=== PATIENT | male | born 1975 | race Caucasian/White ===

== ENCOUNTER 2024-11-04 12:24 | Outpatient (AMB) | payer OTHER, SELFPAY ==
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
[2024-11-04 12:30] VITALS: BP 110/70; PULSE 100; TEMP 36.3; O2SAT 98; BMI 29.0
== END 2024-11-04 13:25 | disposition home or self-care (01) ==
PROVIDERS: Visit Provider Internal Medicine
DX: F43.10 Post-traumatic stress disorder, unspecified (principal); E66.3 Overweight; M32.9 Systemic lupus erythematosus, unspecified; N28.9 Disorder of kidney and ureter, unspecified; Z72.0 Tobacco use; R10.11 Right upper quadrant pain; Z12.11 Encounter for screening for malignant neoplasm of colon; L72.0 Epidermal cyst

== ENCOUNTER → 2024-11-04 12:24 | Outpatient (BNVA) | payer OTHER, SELFPAY | PROVIDERS: Visit Provider Internal Medicine | DX: F43.10 Post-traumatic stress disorder, unspecified (principal); M32.9 Systemic lupus erythematosus, unspecified; E66.3 Overweight; N28.9 Disorder of kidney and ureter, unspecified; R10.11 Right upper quadrant pain; L72.0 Epidermal cyst; Z72.0 Tobacco use | CPT/HCPCS: 99202 ==

== ENCOUNTER 2024-11-28 09:03 | Outpatient (REF) | payer OTHER, SELFPAY ==
[2024-11-28 09:17] LABS: MANUAL DIFF FLAG NO
[2024-11-28 09:40] LABS: Basophils Absolute Auto 0.1 X10*3/uL (0.0-0.2); Basophils Percent Auto 1.2 % (0-2); Eosinophils Absolute Auto 0.5 X10*3/uL (0.0-0.4); Eosinophils Percent Auto 6.7 % (0-4); Hematocrit 50.6 % (42.0-52.0); Hemoglobin 16.5 g/dl (14.0-18.0); Imm Gran Abs Auto 0.03 X10*3/uL (0.00-0.03); Imm Gran Pct Auto 0.4 % (0.0-0.4); Lymphocytes Percent Auto 25.7 % (20-40); Mean Corpuscular HGB Conc 32.6 g/dl (31.0-36.0); Mean Corpuscular Volume 95.1 fL (80.0-98.0); Mean Platelet Volume 9.8 fL (9.4-12.4); Monocytes Absolute Auto 1.1 X10*3/uL (0.1-1.2); Monocytes Percent Auto 13.7 % (2-11); Neutrophils Absolute Auto 4.1 x10*3/uL (2.0-8.3); Neutrophils Percent Auto 52.3 % (45-73); Platelet Count 262 X10*3/uL (160-400); Red Blood Count 5.32 X10*6/uL (4.60-5.80); Red Cell Distribution Width 13.8 % (11.0-16.0); White Blood Count 7.8 X10*3/uL (4.8-10.8)
[2024-11-28 09:58] LABS: Appearance Urine Clear; Color Urine Yellow; Glucose Urine UA Negative (Negative); Leukocyte Esterase Urine Negative (Negative); Nitrite Urine Negative (Negative); UMIC TRIGGER UACC YES; Urine Blood Small (1+) (Negative); Urine Ketones Negative (Negative); Urine Protein Trace mg/dL (Neg-Trace)
[2024-11-28 10:19] LABS: Bacteria Urine None Seen (None Seen); Hyaline Casts Urine 0-2 /LPF (0-2); RBC Urine 0-2 /HPF (0-2); Squamous Epithelial Cell Urine 0-2 /HPF (0-2); WBC Urine 0-5 /HPF (0-5)
[2024-11-28 10:23] LABS: Erythrocyte Sedimentation Rate 13 MM/HR (0-15)
[2024-11-28 10:24] LABS: Alanine Aminotransferase 45 U/L (0-40); Albumin Level 4.2 g/dL (3.5-5.0); Alkaline Phosphatase 110 U/L (39-117); Anion Gap 11 (12-20); Aspartate Amino Transferase 27 U/L (5-37); Bilirubin Total 0.3 mg/dL (0.0-1.0); Blood Urea Nitrogen 13 mg/dL (9-16); Carbon Dioxide 30 mmol/L (22-29); Chloride 105 mmol/L (96-108); Cholesterol 209 mg/dL (<200); Estimated Glomerular Filt Rate 58; Glucose Random 100 mg/dL (60-115); HDL Cholesterol 36 mg/dL (>40); LDL Cholesterol Calculated 137 mg/dL (<100); Potassium 3.5 mmol/L (3.3-5.1); Sodium 142 mmol/L (135-145); Total Protein 7.8 g/dL (6.5-8.0); Triglycerides 184 mg/dL (<150)
[2024-11-28 10:42] LABS: Free T4 (Free Thyroxine) 0.96 ng/dL (0.71-1.85); Thyroid Stimulating Hormone 1.79 uIU/mL (0.32-4.0)
[2024-11-28 10:54] LABS: Folate 11.2 ng/mL (> or = 4.0); Prostate Specific Antigen Scr 1.19 ng/mL (<0.05-4.0); Vitamin B12 299 pg/mL (200-900)
== END 2024-11-28 09:04 | disposition home or self-care (01) ==
LOC: HO.LAB 09:03
PROVIDERS: PCP Internal Medicine; Visit Provider Internal Medicine
DX: M32.9 Systemic lupus erythematosus, unspecified (principal); E78.00 Pure hypercholesterolemia, unspecified; R30.0 Dysuria
CPT/HCPCS: 36415; 80053; 80061; 81001; 82607; 82746; 84153; 84439; 84443; 85025; 85652; 86140

== ENCOUNTER 2024-12-02 08:54 | Outpatient (REF) | payer OTHER, SELFPAY ==
--- NOTE | ~2024-12-02 | US_ITS ---
CLINICAL HISTORY: R79.89 - Other specified abnormal findings of blood chemistry US abdomen complete with duplex and color Doppler Comparison: None Findings: The visualized pancreas, aorta, and inferior vena cava are unremarkable. Liver normal size and diffusely echogenic Right lobe 15.3 cm length. Incidental simple hepatic cyst right lobe measuring 1.0 x 1.0 x 1.0 cm probable focal fatty sparing near the gallbladder fossa. Common duct 4.0 mm diameter. Physiologic distention of the gallbladder. No gallstones or sludge. No gallbladder wall thickening. No pericholecystic fluid. No sonographic Awad sign. Main portal vein antegrade. Right kidney normal size, 14.7 cm in length. Normal cortical width and echotexture. No solid or cystic renal masses. No nephrolithiasis or hydronephrosis. Left kidney not identified in the left renal fossa. Spleen not identified. No ascites. No lymphadenopathy. Impression: 1. Hepatic steatosis with focal fatty sparing. Incidental hepatic cyst. 2. Left kidney and spleen not identified clinical correlation This document has been electronically signed by: Cedrick Cisneros MD on 12/03/2024 07:53:40
--- OUTSIDE RECORDS SUMMARY | 2024-12-02 09:19 | XMS_ITS | Patient Health Record ---
Author Organization [facility] Address [address] [place] [id number] Support Name Relationship Address Phone yoana bowers Emergency Contact Unknown HARJINDER RAMIRES Guarantor Unknown Reason For Referral No Information Medications Medication SIG (Take, Route, Fr equency, Duration) Notes Start Date End Date Status SEROquel 100 MG 1 tablet Orally Once a day for 30 day(s) Unknown Remeron Unknown Cymbalta Unknown Cymbalta 30 MG 1 capsule Orally Onc e a day for 30 day(s) undefined 01/18/2019 Unknown Naproxen 500 MG 1 tablet with food o r milk as needed Orally every 12 hrs Unkno wn Glucosamine Unknown Social History Tobacco Use: Social History Observation Description Date Details (start date - stop date) Never Smoker NA - NA Tobacco Use/Smoking Question Answer Notes Are you a nonsmoker Alcohol Screen (Audit-C) Question Answer Notes Did you have a drink containing alcohol in the p ast year? No Points 0 Interpretation Negative Problems Problem Type SNOMED Code ICD Code Onset Dates Problem Status W/U Status Risk Notes Problem Major depression, single episode (88738499) Major depressive disorder, single episode, unspecified (F32.9) Active confirmed Problem Chest pain (70282404) Chest pain, unspecified (R07.9) Active confirmed Problem Osteoarthritis (780360295) Osteoarthritis (715.00) Active confirmed Problem Posttraumatic stress disorder (52986227) PTSD (post-traumatic stress disorder) (F43.10) Active confirmed Problem Lupus erythematosus (792658448) Lupus erythematosus, unspecified form (L93.0) Active confirmed Plan Of Treatment No Information Medications Administered Medication Instructions Date of Administration Dosage Notes Ketorolac Trometh 30 mg 07/26/2019 Medical (General) History Medical History History ICD Code Major depressive disorder, single episod e, unspecified F32.9 Chest pain, unspecified R07.9 Osteoarthritis 715.00 respiratory problems reumatoid arthritis
== END 2024-12-02 08:55 | disposition home or self-care (01) ==
LOC: HO.US 08:54
PROVIDERS: PCP Internal Medicine; Visit Provider Internal Medicine
DX: R79.89 Other specified abnormal findings of blood chemistry (principal); R10.11 Right upper quadrant pain
CPT/HCPCS: 76700

== ENCOUNTER → 2024-12-02 08:56 | Outpatient (BNV) | payer OTHER, SELFPAY | PROVIDERS: PCP Internal Medicine; Visit Provider Radiology Diagnostic Radiology | DX: K76.0 Fatty (change of) liver, not elsewhere classified (principal) | CPT/HCPCS: 76700 ==

== ENCOUNTER 2024-12-09 10:43 | Outpatient (AMB) | payer OTHER, SELFPAY ==
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
--- OUTSIDE RECORDS SUMMARY | 2024-12-09 11:47 | XMS_ITS | Patient Health Record ---
Author Organization [facility] Address [address] [place] [phone] Support Name Relationship Address Phone yoana bowers [...] Risk Notes Problem Major depression, single episode (25647753) Major depressive disorder, single episode, unspecified (F32.9) Active confirmed Problem Chest pain (55655088) Chest pain, unspecified (R07.9) Active confirmed Problem Osteoarthritis (662868660) Osteoarthritis (715.00) Active confirmed Problem Posttraumatic stress disorder (34121088) PTSD (post-traumatic stress disorder) (F43.10) Active confirmed Problem Lupus erythematosus (403009469) Lupus erythematosus, unspecified form (L93.0) Active confirmed Plan Of Treatment No Information Medications Administered Medication Instructions Date of Administration Dosage Notes Ketorolac Trometh 30 mg 07/26/2019 Medical (General) History Medical History History ICD Code Major depressive disorder, single episod e, unspecified F32.9 Chest pain, unspecified R07.9 Osteoarthritis 715.00 respiratory problems reumatoid arthritis
== END 2024-12-09 13:02 | disposition home or self-care (01) ==
PROVIDERS: PCP Internal Medicine; Visit Provider Physician Assistant Medical
DX: F17.210 Nicotine dependence, cigarettes, uncomplicated (principal)
CPT/HCPCS: G0296

== ENCOUNTER 2024-12-09 11:22 | Outpatient (REF) | payer OTHER, SELFPAY ==
--- NOTE | ~2024-12-09 | CT_ITS ---
CLINICAL HISTORY: F17.210 - Nicotine dependence, cigarettes, uncomplicated CT lung cancer screening (LDCT) Comparison: None Technique: Axial CT images of the chest using low-dose technique. Referring provider counseled the patient on shared decision-making for LDCT screening. Additional counseling was provided on smoking cessation. Effective radiation dose total: DLP 47.5 mGycm, CTDIvol 1.5 mGy. Findings: Lung: No solid or semi solid pulmonary lesion Coronary artery calcifications: none Limited upper abdomen: Unremarkable Other: None Impression: Category 1: Normal Category 1: Normal; continue annual screening Category 2: Benign appearance or behavior, continue annual screening Category 3: Probably benign, [address] recommended Category 4A: Suspicious, [address] recommended; may consider PET/CT Category 4B: Suspicious, Additional diagnostics and/or tissue sampling recommended Category 4X: Suspicious, Additional diagnostics and/or tissue sampling recommended Category 0: Recalls (incomplete screen due to Incomplete coverage, Noise, Respiratory motion, Expiration, Obscured by acute abnormality) This document has been electronically signed by: Robert Martel MD on 12/12/2024 08:46:50
== END 2024-12-09 11:23 | disposition home or self-care (01) ==
LOC: HO.CT 11:22
PROVIDERS: Visit Provider Physician Assistant Medical
DX: Z12.2 Encounter for screening for malignant neoplasm of respiratory organs (principal); F17.210 Nicotine dependence, cigarettes, uncomplicated
CPT/HCPCS: 71271; G0296

== ENCOUNTER → 2024-12-09 11:23 | Outpatient (BNV) | payer OTHER, SELFPAY | PROVIDERS: Visit Provider Specialist | DX: F17.210 Nicotine dependence, cigarettes, uncomplicated (principal) | CPT/HCPCS: 71271 ==

== ENCOUNTER 2025-02-03 12:22 | Outpatient (AMB) | payer OTHER, SELFPAY ==
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
[2025-02-03 12:35] VITALS: BP 124/72; PULSE 57; TEMP 36.5; O2SAT 97; BMI 28.7
--- OUTSIDE RECORDS SUMMARY | 2025-02-03 13:09 | XMS_ITS | Patient Health Record ---
Author Organization [facility] Address [address] [place] [id number] Support Name Relationship Address Phone yoana bowers [...] Risk Notes Problem Major depression, single episode ([id number]) Major depressive disorder, single episode, unspecified (F32.9) Active confirmed Problem Chest pain (87817796) Chest pain, unspecified (R07.9) Active confirmed Problem Osteoarthritis (379019020) Osteoarthritis (715.00) Active confirmed Problem Posttraumatic stress disorder (39929506) PTSD (post-traumatic stress disorder) (F43.10) Active confirmed Problem Lupus erythematosus (112368219) Lupus erythematosus, unspecified form (L93.0) Active confirmed Plan Of Treatment No Information Medications Administered Medication Instructions Date of Administration Dosage Notes Ketorolac Trometh 30 mg 07/26/2019 Medical (General) History Medical History History ICD Code Major depressive disorder, single episod e, unspecified F32.9 Chest pain, unspecified R07.9 Osteoarthritis 715.00 respiratory problems reumatoid arthritis
== END 2025-02-03 13:42 | disposition home or self-care (01) ==
LOC: HO.HMCH 12:23
PROVIDERS: Visit Provider Internal Medicine
DX: Z00.00 Encounter for general adult medical examination without abnormal findings (principal); F17.210 Nicotine dependence, cigarettes, uncomplicated; M32.9 Systemic lupus erythematosus, unspecified; E66.3 Overweight; E78.00 Pure hypercholesterolemia, unspecified; R73.02 Impaired glucose tolerance (oral); K76.0 Fatty (change of) liver, not elsewhere classified; F43.10 Post-traumatic stress disorder, unspecified; R35.0 Frequency of micturition; R31.9 Hematuria, unspecified; Z23 Encounter for immunization

== ENCOUNTER → 2025-02-03 12:22 | Outpatient (BNVA) | payer OTHER, SELFPAY | PROVIDERS: Visit Provider Internal Medicine | DX: Z00.00 Encounter for general adult medical examination without abnormal findings (principal); Z23 Encounter for immunization; M32.9 Systemic lupus erythematosus, unspecified; E66.3 Overweight; Z68.28 Body mass index [BMI] 28.0-28.9, adult; E78.00 Pure hypercholesterolemia, unspecified; R73.02 Impaired glucose tolerance (oral); K76.0 Fatty (change of) liver, not elsewhere classified; F43.10 Post-traumatic stress disorder, unspecified; R35.0 Frequency of micturition; R31.9 Hematuria, unspecified; F17.210 Nicotine dependence, cigarettes, uncomplicated; Z90.5 Acquired absence of kidney | CPT/HCPCS: 90471; 90677; 99396 ==

== ENCOUNTER 2025-02-09 15:16 | Outpatient (REF) | payer OTHER, SELFPAY ==
--- NOTE | ~2025-02-09 | US_ITS ---
CLINICAL HISTORY: R35.0 - Frequency of micturition US bladder with color Doppler Comparison: None Findings: Urinary bladder is unremarkable. Prevoid volume 260.0 mL. Postvoid volume 32.3 mL. Ureteral jets were demonstrated on the right only. Prostate measures 3.1 x 3.7 x 4.1 cm Impression: 1. Elevated postvoid residual volume. 2. Prostate volume 32.3 mL. 3. Right ureteral jet was documented technologist documented left kidney removed please confirm with patient's surgical history. This document has been electronically signed by: Cedrick Cisneros MD on 02/10/2025 12:30:13
--- OUTSIDE RECORDS SUMMARY | 2025-02-09 17:59 | XMS_ITS | Patient Health Record ---
Author Organization [facility] Address [address] [place] [phone] Support Name Relationship Address Phone yoana bowers Emergency Contact Unknown [phone] HARJINDER RAMIRES Guarantor Unknown [phone] Reason For Referral No Information Medications Medication [...] Risk Notes Problem Major depression, single episode (39079784) Major depressive disorder, single episode, unspecified (F32.9) Active confirmed Problem Chest pain (84880733) Chest pain, unspecified (R07.9) Active confirmed Problem Osteoarthritis (657418580) Osteoarthritis (715.00) Active confirmed Problem Posttraumatic stress disorder (90450748) PTSD (post-traumatic stress disorder) (F43.10) Active confirmed Problem Lupus erythematosus (772387335) Lupus erythematosus, unspecified form (L93.0) Active confirmed Plan Of Treatment No Information Medications Administered Medication Instructions Date of Administration Dosage Notes Ketorolac Trometh 30 mg 07/26/2019 Medical (General) History Medical History History ICD Code Major depressive disorder, single episod e, unspecified F32.9 Chest pain, unspecified R07.9 Osteoarthritis 715.00 respiratory problems reumatoid arthritis
== END 2025-02-09 15:17 | disposition home or self-care (01) ==
LOC: HO.US 15:16
PROVIDERS: PCP Internal Medicine; Visit Provider Internal Medicine
DX: R35.0 Frequency of micturition (principal)
CPT/HCPCS: 76857

== ENCOUNTER → 2025-02-09 15:20 | Outpatient (BNV) | payer OTHER, SELFPAY | PROVIDERS: PCP Internal Medicine; Visit Provider Radiology Diagnostic Radiology | DX: R35.0 Frequency of micturition (principal) | CPT/HCPCS: 76857 ==

== ENCOUNTER 2025-03-07 08:52 | Outpatient (REF) | payer OTHER, SELFPAY ==
--- OUTSIDE RECORDS SUMMARY | 2025-03-07 09:18 | XMS_ITS | Patient Health Record ---
Author Organization [facility] Address [address] [place] [id number] Support Name Relationship Address Phone yoana bowers Emergency Contact Unknown [phone] HARJINDER RAMIRES Guarantor Unknown Reason For Referral [...] Risk Notes Problem Major depression, single episode (17572614) Major depressive disorder, single episode, unspecified (F32.9) Active confirmed Problem Chest pain (49914467) Chest pain, unspecified (R07.9) Active confirmed Problem Osteoarthritis (254182329) Osteoarthritis (715.00) Active confirmed Problem Posttraumatic stress disorder (23836991) PTSD (post-traumatic stress disorder) (F43.10) Active confirmed Problem Lupus erythematosus (911892637) Lupus erythematosus, unspecified form (L93.0) Active confirmed Plan Of Treatment No Information Medications Administered Medication Instructions Date of Administration Dosage Notes Ketorolac Trometh 30 mg 07/26/2019 Medical (General) History Medical History History ICD Code Major depressive disorder, single episod e, unspecified F32.9 Chest pain, unspecified R07.9 Osteoarthritis 715.00 respiratory problems reumatoid arthritis
[2025-03-07 09:30] LABS: Urine Cytology See Pathology rpt
[2025-03-07 09:38] LABS: Estimated Average Glucose 111 mg/dL; Hemoglobin A1C 150.6498 umol/L; Hemoglobin A1c % 5.5 % (<6.0); Total Hemoglobin (HGBA1C) 4134.7681 umol/L
[2025-03-07 09:58] LABS: Alanine Aminotransferase 37 U/L (0-40); Alkaline Phosphatase 104 U/L (39-117); Aspartate Amino Transferase 26 U/L (5-37); Bilirubin Direct < 0.2 mg/dL (0.0-0.5); Bilirubin Total 0.2 mg/dL (0.0-1.0); Total Protein 7.1 g/dL (6.5-8.0)
[2025-03-07 10:14] LABS: Appearance Urine Clear; Color Urine Yellow; Glucose Urine UA Negative (Negative); Leukocyte Esterase Urine Negative (Negative); Nitrite Urine Negative (Negative); PH 5.5 (5.0-9.0); Specific Gravity - Urine 1.025 (1.005-1.025); UMIC TRIGGER UACC YES; Urine Blood Trace (Negative); Urine Ketones Trace mg/dL (Negative); Urine Protein Negative (Neg-Trace)
[2025-03-07 10:22] LABS: Bacteria Urine None Seen (None Seen); Hyaline Casts Urine 0-2 /LPF (0-2); RBC Urine 0-2 /HPF (0-2); Squamous Epithelial Cell Urine 0-2 /HPF (0-2); WBC Urine 0-5 /HPF (0-5)
[2025-03-07 10:25] LABS: HBS Num1 0.64 mIU/mL (0-7.99); HBc Num1 0.06 S/CO (0.00-0.79); HBsAGNum1 0.35 S/CO (0.00-0.99); Hepatitis B Core Antibody Nonreactive (Nonreactive); Hepatitis B Surface Antigen Negative (Negative); ~HepC Num1 0.08 S/CO (0.00-0.79); ~Hepatitis B Surface Antibody NONREACTIVE (Nonreactive); ~Hepatitis C Antibody Nonreactive (Nonreactive)
== END 2025-03-07 08:53 | disposition home or self-care (01) ==
LOC: HO.LAB 08:52
PROVIDERS: PCP Internal Medicine; Visit Provider Internal Medicine
DX: K76.0 Fatty (change of) liver, not elsewhere classified (principal); R35.0 Frequency of micturition; R79.89 Other specified abnormal findings of blood chemistry; R30.0 Dysuria; M32.9 Systemic lupus erythematosus, unspecified
CPT/HCPCS: 36415; 80076; 81001; 81003; 83036; 86704; 86706; 86803; 87340; 88112

== ENCOUNTER 2025-03-31 11:03 | Outpatient (AMB) | payer OTHER, SELFPAY ==
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
[2025-03-31 11:06] VITALS: BP 110/94; PULSE 80; O2SAT 96; BMI 28.1
--- OUTSIDE RECORDS SUMMARY | 2025-03-31 12:09 | XMS_ITS | Patient Health Record ---
Author Organization [facility] Address [address] [place] [phone] Support Name Relationship Address Phone yoana bowers Emergency Contact Unknown [phone] HARJINDER RAMIRES Guarantor Unknown Reason For Referral [...] Risk Notes Problem Major depression, single episode (19971263) Major depressive disorder, single episode, unspecified (F32.9) Active confirmed Problem Chest pain (81680346) Chest pain, unspecified (R07.9) Active confirmed Problem Osteoarthritis (457159693) Osteoarthritis (715.00) Active confirmed Problem Posttraumatic stress disorder (22914033) PTSD (post-traumatic stress disorder) (F43.10) Active confirmed Problem Lupus erythematosus (918609517) Lupus erythematosus, unspecified form (L93.0) Active confirmed Plan Of Treatment No Information Medications Administered Medication Instructions Date of Administration Dosage Notes Ketorolac Trometh 30 mg 07/26/2019 Medical (General) History Medical History History ICD Code Major depressive disorder, single episod e, unspecified F32.9 Chest pain, unspecified R07.9 Osteoarthritis 715.00 respiratory problems reumatoid arthritis
== END 2025-03-31 11:43 | disposition home or self-care (01) ==
LOC: HO.HGI 11:03
PROVIDERS: PCP Internal Medicine; Visit Provider Nurse Practitioner
DX: Z01.818 Encounter for other preprocedural examination (principal); Z12.11 Encounter for screening for malignant neoplasm of colon; R11.2 Nausea with vomiting, unspecified; M32.9 Systemic lupus erythematosus, unspecified; N28.9 Disorder of kidney and ureter, unspecified
CPT/HCPCS: 99203

== ENCOUNTER → 2025-03-31 11:03 | Outpatient (BNVA) | payer OTHER, SELFPAY | PROVIDERS: PCP Internal Medicine; Visit Provider Nurse Practitioner | DX: Z01.818 Encounter for other preprocedural examination (principal); M32.9 Systemic lupus erythematosus, unspecified; N28.9 Disorder of kidney and ureter, unspecified | CPT/HCPCS: 99202 ==

== ENCOUNTER 2025-05-10 07:54 | Outpatient (AMB) | payer OTHER, SELFPAY ==
--- OUTSIDE RECORDS SUMMARY | 2025-05-10 07:57 | XMS_ITS | Patient Health Record ---
Author Organization [facility] Address [address] [place] [phone] Support Name Relationship Address Phone yoana bowers Emergency Contact Unknown [phone] HARJINDER RAMIRES Guarantor Unknown Reason For Referral No Information Medications Medication SIG (Take, Route, Frequency, Duration) Notes Start Date End Date Status SEROquel 100 MG Tablet 1 tablet Orally O nce a day; Duration: 30 day(s) Unknown Remeron Unknown Cymbalta Unknown Cymbalta 30 MG Capsule Delayed Release Particles 1 capsule Orally Once a day; Duration: 30 day(s) undefined 01/18/2019 Unknown Naproxen 500 MG Tablet 1 tablet with miladis d or milk as needed Orally every 12 hrs Unknown Glucosamine Unknown Social History Tobacco Use: Social History Observation Description Date Details (start date - stop date) Never Smoker NA - NA Social History Drugs/Alcohol: Social Info Question Answer Notes Alcohol Screen (Audit-C) Did you have a drink containing alcohol in the past year? No Points 0 Interpretation Negative Tobacco Use: Social Info Question Answer Notes Tobacco Use/Smoking Are you a nonsmoker Problems Problem Type SNOMED Code ICD Code Onset Dates Problem Status W/U Status Risk Notes Problem Major depression, single episode (43023008) Major depressive disorder, single episode, unspecified (F32.9) Active confirmed Problem Chest pain (24853177) Chest pain, unspecified (R07.9) Active confirmed Problem Osteoarthritis (333363930) Osteoarthritis (715.00) Active confirmed Problem Posttraumatic stress disorder (27145937) PTSD (post-traumatic stress disorder) (F43.10) Active confirmed Problem Lupus erythematosus, unspecified form (L93.0) Active confirmed Plan Of Treatment No Information Medications Administered Medication Instructions Date of Administration Dosage Notes Ketorolac Trometh 30 mg 07/26/2019 Medical (General) History Medical History History ICD Code Major depressive disorder, single episod e, unspecified F32.9 Chest pain, unspecified R07.9 Osteoarthritis 715.00 respiratory problems reumatoid arthritis
[2025-05-10 07:58] VITALS: BP 110/70; PULSE 93; O2SAT 98; BMI 28.1
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
== END 2025-05-10 08:40 | disposition home or self-care (01) ==
LOC: HO.RHE 07:55
PROVIDERS: PCP Internal Medicine; Visit Provider Student in an Organized Health Care Education/Training Program
DX: M32.9 Systemic lupus erythematosus, unspecified (principal)
CPT/HCPCS: 99203; G2211

== ENCOUNTER 2025-05-10 07:54 | Outpatient (REF) | payer OTHER, SELFPAY | END 2025-05-10 07:55 | disposition home or self-care (01) | LOC: HO.LNP 07:54 | PROVIDERS: Nurse Practitioner Family; PCP Internal Medicine; Visit Provider Student in an Organized Health Care Education/Training Program | DX: M32.9 Systemic lupus erythematosus, unspecified (principal); M25.561 Pain in right knee; M25.562 Pain in left knee; M25.511 Pain in right shoulder; M25.512 Pain in left shoulder; M25.521 Pain in right elbow; M25.522 Pain in left elbow; Z79.899 Other long term (current) drug therapy | CPT/HCPCS: 51798; 81003; 88112; 99202 ==

== ENCOUNTER 2025-05-10 12:55 | Outpatient (AMB) | payer OTHER, SELFPAY ==
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
== END 2025-05-10 13:56 | disposition home or self-care (01) ==
LOC: HO.HUSH 12:56
PROVIDERS: PCP Internal Medicine; Visit Provider Nurse Practitioner Family
DX: N39.43 Post-void dribbling (principal); Z90.5 Acquired absence of kidney; N40.0 Benign prostatic hyperplasia without lower urinary tract symptoms; R31.29 Other microscopic hematuria; F17.200 Nicotine dependence, unspecified, uncomplicated; Z13.9 Encounter for screening, unspecified
CPT/HCPCS: 99204

== ENCOUNTER 2025-05-15 16:33 | Outpatient (AMB) | payer OTHER, SELFPAY ==
[2025-05-15 16:35] VITALS: BP 120/90; PULSE 90; RESP 18; TEMP 36.3; O2SAT 94; BMI 28.3
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
--- OUTSIDE RECORDS SUMMARY | 2025-05-15 16:35 | XMS_ITS | Patient Health Record ---
Author Organization [facility] Address [address] [place] [id number] Support Name Relationship Address Phone yoana bowers Emergency Contact Unknown HARJINDER RAMIRES Guarantor Unknown [phone] Reason For Referral No Information Medications Medication [...] Risk Notes Problem Major depression, single episode (84050152) Major depressive disorder, single episode, unspecified (F32.9) Active confirmed Problem Chest pain (49115471) Chest pain, unspecified (R07.9) Active confirmed Problem Osteoarthritis (658992674) Osteoarthritis (715.00) Active confirmed Problem Posttraumatic stress disorder (71810228) PTSD (post-traumatic stress disorder) (F43.10) Active confirmed Problem Lupus erythematosus (761659510) Lupus erythematosus, unspecified form (L93.0) Active confirmed Plan Of Treatment No Information Medications Administered Medication Instructions Date of Administration Dosage Notes Ketorolac Trometh 30 mg 07/26/2019 Medical (General) History Medical History History ICD Code Major depressive disorder, single episod e, unspecified F32.9 Chest pain, unspecified R07.9 Osteoarthritis 715.00 respiratory problems reumatoid arthritis
== END 2025-05-15 17:24 | disposition home or self-care (01) ==
LOC: HO.HMCH 16:34
PROVIDERS: Visit Provider Internal Medicine
DX: E78.00 Pure hypercholesterolemia, unspecified (principal); R73.02 Impaired glucose tolerance (oral); R35.0 Frequency of micturition; M32.9 Systemic lupus erythematosus, unspecified; F17.210 Nicotine dependence, cigarettes, uncomplicated; K76.0 Fatty (change of) liver, not elsewhere classified; F43.10 Post-traumatic stress disorder, unspecified

== ENCOUNTER → 2025-05-15 16:33 | Outpatient (BNVA) | payer OTHER, SELFPAY | PROVIDERS: Visit Provider Internal Medicine | DX: R35.0 Frequency of micturition (principal); E78.00 Pure hypercholesterolemia, unspecified; R73.02 Impaired glucose tolerance (oral); M32.9 Systemic lupus erythematosus, unspecified; K76.0 Fatty (change of) liver, not elsewhere classified; F43.10 Post-traumatic stress disorder, unspecified; F17.210 Nicotine dependence, cigarettes, uncomplicated | CPT/HCPCS: 99212 ==

== ENCOUNTER 2025-06-14 12:28 | Outpatient (REF) | payer OTHER, SELFPAY ==
--- OUTSIDE RECORDS SUMMARY | 2025-06-14 12:59 | XMS_ITS | Patient Health Record ---
Author Organization [facility] Address [address] [place] [phone] Support Name Relationship Address Phone yoana bowers Emergency Contact Unknown HARJINDER RAMIRES Guarantor Unknown [phone] Reason For Referral No Information Medications Medication [...] Status W/U Status Risk Notes Problem Major depressive disorder, single episode, unspecified (F32.9) Active confirmed Problem Chest pain (56233465) Chest pain, unspecified (R07.9) Active confirmed Problem Osteoarthritis (581042830) Osteoarthritis (715.00) Active confirmed Problem Posttraumatic stress disorder (74963602) PTSD (post-traumatic stress disorder) (F43.10) Active confirmed Problem Lupus erythematosus (380409400) Lupus erythematosus, unspecified form (L93.0) Active confirmed Plan Of Treatment No Information Medications Administered Medication Instructions Date of Administration Dosage Notes Ketorolac Trometh 30 mg 07/26/2019 Medical (General) History Medical History History ICD Code Major depressive disorder, single episod e, unspecified F32.9 Chest pain, unspecified R07.9 Osteoarthritis 715.00 respiratory problems reumatoid arthritis
[2025-06-15 19:43] LABS: Antibody to SS-A Antigen <1.0 NEG AI (<1.0 NEG); Antibody to SS-B Antigen <1.0 NEG AI (<1.0 NEG); SM/Ribonucleoprotein Ab <1.0 NEG AI (<1.0 NEG); Smith Protein <1.0 NEG AI (<1.0 NEG)
[2025-06-17 09:04] LABS: DNAds, Crithidia Antibody Negative (Negative)
[2025-06-18 13:57] LABS: Anti Nuclear Antibody Screen NEGATIVE (NEGATIVE)
== END 2025-06-14 12:29 | disposition home or self-care (01) ==
LOC: HO.LAB 12:28
PROVIDERS: PCP Internal Medicine; Visit Provider Student in an Organized Health Care Education/Training Program
DX: Z01.84 Encounter for antibody response examination (principal); M32.9 Systemic lupus erythematosus, unspecified
CPT/HCPCS: 36415; 85597; 85598; 85613; 85652; 85730; 86038; 86140; 86160; 86225; 86235; 86255

== ENCOUNTER 2025-06-15 05:00 | Outpatient (REF) | payer OTHER, SELFPAY ==
[2025-06-16 12:11] LABS: Appearance Urine Clear; Glucose Urine UA Negative (Negative); PH 7.0 (5.0-9.0); Specific Gravity - Urine 1.015 (1.005-1.025); UMIC TRIGGER UA YES
--- OUTSIDE RECORDS SUMMARY | 2025-06-16 12:50 | XMS_ITS | Patient Health Record ---
Author Organization [facility] Address [address] [place] [phone] Support Name Relationship Address Phone yoana bowers [...] Risk Notes Problem Major depression, single episode (77286085) Major depressive disorder, single episode, unspecified (F32.9) Active confirmed Problem Chest pain (62239997) Chest pain, unspecified (R07.9) Active confirmed Problem Osteoarthritis (091608834) Osteoarthritis (715.00) Active confirmed Problem Posttraumatic stress disorder (35430226) PTSD (post-traumatic stress disorder) (F43.10) Active confirmed Problem Lupus erythematosus (049868682) Lupus erythematosus, unspecified form (L93.0) Active confirmed Plan Of Treatment No Information Medications Administered Medication Instructions Date of Administration Dosage Notes Ketorolac Trometh 30 mg 07/26/2019 Medical (General) History Medical History History ICD Code Major depressive disorder, single episod e, unspecified F32.9 Chest pain, unspecified R07.9 Osteoarthritis 715.00 respiratory problems reumatoid arthritis
[2025-06-16 13:09] LABS: Protein/Creatinine Ratio, Ur 0.09 (<0.2); Total Protein Urine Random 10 mg/dL (<12)
== END 2025-06-15 05:01 | disposition home or self-care (01) ==
LOC: HO.LNP 05:00
PROVIDERS: Visit Provider Student in an Organized Health Care Education/Training Program
DX: M32.9 Systemic lupus erythematosus, unspecified (principal)
CPT/HCPCS: 81001; 82570; 84156

== ENCOUNTER 2025-07-27 12:52 | Outpatient (REF) | payer OTHER, SELFPAY ==
--- NOTE | ~2025-07-27 | US_ITS ---
EXAMINATION: US RETROPERITONEAL LIMITED (RENAL ONLY) CLINICAL INFORMATION: Fluoroscopic hematuria. COMPARISON: US abdomen 12/02/2024. Renal US 04/10/2017. TECHNIQUE: Real-time imaging of the kidneys. FINDINGS: RIGHT KIDNEY: 14.9 x 6.4 x 6.5 cm (SAG x AP x TRV). The kidney is normal in size, contour, and echogenicity. Renal cortical thickness is normal. No calculi. No hydronephrosis.] Lower pole cortex, there is an oval hypoechoic focus, poorly defined, measuring approximately 2.2 x 1.5 cm. No internal color Doppler signal. This may represent artifact although an intrinsic renal abnormality is not excluded. LEFT KIDNEY: Absent. No abnormality in the left renal fossa. US/US renal BI IMPRESSION: 1. Absent left kidney. 2. Hypoechoic oval cortical focus in the lower pole of the right kidney, uncertain significance or etiology. This was not seen previously. Differential includes sonographic artifact, or nonspecific parenchymal abnormality. A mass is felt to be unlikely given the appearance. Suggest correlating with renal protocol CT examination. Alternatively, short interval follow-up renal ultrasound could be considered. Electronically signed by: David Mina MD 07/27/2025 01:34 PM EDT
== END 2025-07-27 12:53 | disposition home or self-care (01) ==
LOC: HO.US 12:52
PROVIDERS: PCP Internal Medicine; Visit Provider Internal Medicine
DX: R31.29 Other microscopic hematuria (principal)
CPT/HCPCS: 76775

== ENCOUNTER → 2025-07-27 12:54 | Outpatient (BNV) | payer OTHER, SELFPAY | PROVIDERS: PCP Internal Medicine; Visit Provider Radiology Diagnostic Radiology | DX: R31.29 Other microscopic hematuria (principal); Z90.5 Acquired absence of kidney | CPT/HCPCS: 76775 ==

== ENCOUNTER 2025-08-14 13:26 | Outpatient (REF) | payer OTHER, SELFPAY | END 2025-08-14 13:27 | disposition home or self-care (01) | LOC: HO.LAB 13:26 | PROVIDERS: PCP Internal Medicine; Visit Provider Nurse Practitioner Family | DX: N40.1 Benign prostatic hyperplasia with lower urinary tract symptoms (principal); R35.0 Frequency of micturition; R31.29 Other microscopic hematuria; F17.210 Nicotine dependence, cigarettes, uncomplicated; Z13.89 Encounter for screening for other disorder; Z79.899 Other long term (current) drug therapy; Z90.5 Acquired absence of kidney | CPT/HCPCS: 51798; 81003; 88112; 99212 ==

== ENCOUNTER 2025-08-14 13:26 | Outpatient (AMB) | payer OTHER, SELFPAY ==
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
--- OUTSIDE RECORDS SUMMARY | 2025-08-14 17:09 | XMS_ITS | Patient Health Record ---
Author Organization [facility] Address [address] [place] [phone] Support Name Relationship Address Phone yoana bowers Emergency Contact Unknown HARJINDER RAMIRES Guarantor Unknown [phone] Reason For Referral No Information Medications Medication [...] Risk Notes Problem Major depression, single episode (03127906) Major depressive disorder, single episode, unspecified (F32.9) Active confirmed Problem Chest pain (14264548) Chest pain, unspecified (R07.9) Active confirmed Problem Osteoarthritis (341178302) Osteoarthritis (715.00) Active confirmed Problem Posttraumatic stress disorder (75639262) PTSD (post-traumatic stress disorder) (F43.10) Active confirmed Problem Lupus erythematosus (536121715) Lupus erythematosus, unspecified form (L93.0) Active confirmed Plan Of Treatment No Information Medications Administered Medication Instructions Date of Administration Dosage Notes Ketorolac Trometh 30 mg 07/26/2019 Medical (General) History Medical History History ICD Code Major depressive disorder, single episod e, unspecified F32.9 Chest pain, unspecified R07.9 Osteoarthritis 715.00 respiratory problems reumatoid arthritis
== END 2025-08-14 13:59 | disposition home or self-care (01) ==
LOC: HO.HUSH 13:28
PROVIDERS: PCP Internal Medicine; Visit Provider Nurse Practitioner Family
DX: R35.0 Frequency of micturition (principal); Z90.5 Acquired absence of kidney; N40.0 Benign prostatic hyperplasia without lower urinary tract symptoms; R31.29 Other microscopic hematuria; F17.200 Nicotine dependence, unspecified, uncomplicated; Z13.9 Encounter for screening, unspecified
CPT/HCPCS: 99213